=== PATIENT | male | born 1970 | race Caucasian/White ===

== ENCOUNTER 2021-04-17 07:52 | Emergency (ER) | payer MEDICAID, SELFPAY ==
[2021-04-17 07:54] VITALS: BP 165/99; PULSE 53; RESP 16; TEMP 36.1; O2SAT 98; BMI 21.7
--- NOTE | 2021-04-17 08:32 | CT_ITS ---
STUDY: CT ABDOMEN AND PELVIS WITHOUT CONTRAST REASON FOR EXAM: Male, 50 years old. Left flank pain. History of kidney stones. RADIATION DOSAGE (If Supplied By Facility): CTDIvol = ( 6.78 ) mGy, DLP = ( 294.26 ) mGycm TECHNIQUE: Transaxial images were obtained from the dome of the diaphragm to the symphysis pubis without oral contrast, and without intravenous contrast. Sagittal and coronal images were reconstructed. Individualized dose optimization techniques were used for this CT. COMPARISON: None. FINDINGS: The visualized lung bases are unremarkable. The visualized portions of the heart are within normal limits. Normal liver. Normal gallbladder and extrahepatic biliary system. Normal spleen. Normal pancreas. Normal bilateral adrenal glands. Normal right kidney. There is a 2.7 cm x 3.2 cm cyst in the upper posterior aspect of the left kidney. Mild degree of left hydronephrosis and left hydroureter with perinephric and periureteric stranding due to a 5.3 mm calculus in the distal portion of the left ureter. 3 mm nonobstructive calculus in the mid posterior calyx of the left kidney. Normal visualized stomach. Normal small intestine. Normal colon. The appendix is visualized and appears normal. There is scattered atherosclerotic calcification of the abdominal aorta, without a demonstrated aneurysm. Normal inferior vena cava. Normal retroperitoneum. Normal urinary bladder. There are prostatic calcifications. There is a small umbilical hernia containing fat. Normal osseous structures. CT/Abdomen/Pelvis without Cont IMPRESSION: 5.2 mm calculus in the distal portion of left ureter causing left hydronephrosis and hydroureter with perinephric and periureteric stranding. 3 mm nonobstructive calculus in the mid posterior calyx of the left kidney. 2.7 cm x 3.2 sinuses the upper posterior aspect of the left kidney. Small umbilical hernia containing fat. Electronically Signed: Raul Miranda MD at 9:38 EST ,
--- NOTE | 2021-04-17 08:33 | EDS_ITS ---
HPI HPI - GI History of Present Illness Chief Complaint: Flank Pain Narrative Narrative: Patient with past medical history of multiple ureteral stones presents with left-sided flank pain that began this morning. He states yesterday had right flank pain and passed a small stone. His left-sided flank pain that radiates to his groin started this morning. Sudden onset. It feels very similar to previous kidney stones. Additionally, while he denies any gross hematuria, his urine did turn dark. He denies any fevers or chills. No nausea or vomiting. No exacerbating or alleviating factors. He did drive himself here to the emergency department. [facility] Medical History Anxiety HTN (hypertension) Kidney stone Home Medications amlodipine 5 mg PO DAILY 04/17/21 [History Last Taken Unknown] bupropion HCl [Wellbutrin] 50 mg PO DAILY 04/17/21 [History Last Taken Unknown] ciprofloxacin HCl [Cipro] 500 mg PO BID #20 tab 04/17/21 [Rx Last Taken Unknown] ketorolac 10 mg PO TID PRN 5 Days #15 tab 04/17/21 [Rx Last Taken Unknown] lisinopril 5 mg PO DAILY 04/17/21 [History Last Taken Unknown] oxycodone-acetaminophen [Percocet] 1 tab PO Q6H PRN 3 Days #12 tab 04/17/21 [Rx Last Taken Unknown] prazosin 0 mg PO QHS 04/17/21 [History Last Taken Unknown] propranolol 0 mg PO PRN PRN 04/17/21 [History Last Taken Unknown] tamsulosin [Flomax] 0.4 mg PO DAILY #10 cap 04/17/21 [Rx Last Taken Unknown] trazodone 50 mg PO QHS 04/17/21 [History Last Taken Unknown] Allergy/AdvReac Type Severity Reaction Status Date / Time No Known Allergies Allergy Verified 04/17/21 07:53 Social History Smoking Status: Current every day smoker tobacco type: cigarettes ROS ROS ED ROS Narrative Constitutional: No fever, no chills. HEENT: No sore throat. No neck pain. No loss of vision. No rhinorrhea. Cardiovascular: No chest pain. No palpitations. No pedal edema. Respiratory: No cough, no shortness of breath. Abdominal: No abdominal pain. No nausea. No vomiting. Genitourinary: No dysuria. No hematuria. Dark urine. Left flank pain. Right flank pain yesterday, resolved. Musculoskeletal: No myalgias. No arthralgias. Neurologic: No headaches. No dizziness. No lightheadedness. Skin: No rash. No change in color. Psychiatric: No depression. No anxiety. EXAM Physical Exam Narrative Exam Narrative: Afebrile. Vital signs noted. HEENT: Normocephalic. Atraumatic. PERRL, EOMI. Neck soft and supple. No point tenderness or step off. Cardiovascular: Regular rate and rhythm. No murmurs, rubs, or gallops appreciated. Respiratory: No tachypnea. Lungs clear to auscultation bilaterally. Gastrointestinal: Abdomen soft, nontender, with normoactive bowel sounds. No rebound or guarding. CVA tenderness to percussion left. Neurological: Awake. Alert. Nonfocal, nonlateralizing. Skin: No rash. Normal color. No pallor. Musculoskeletal: No pedal edema. Full range of motion extremities. Const Vital Signs: 04/17/21 07:54 04/17/21 09:53 Temperature 96.9 F L Temperature Source Temporal Pulse Rate 53 L 60 Respiratory Rate 16 14 Blood Pressure 165/99 H 142/91 H Blood Pressure Mean 121 108 Pulse Ox 98 98 Oxygen Delivery Method Room Air Room Air MDM MDM MDM Narrative Medical decision making narrative: CT kidney stone work-up was obtained. Patient was administered IV fluids and ketorolac 30 mg intravenously. I will obtain basic laboratories and urinalysis. He has an elevated white count of 17.3 which I think is nonspecific, hemoglobin stable at 16.7 if not slightly elevated. Creatinine is slightly elevated at 1.4 with a BUN of 20. He was bolused normal saline. Urinalysis does show five ketones consistent more with dehydration. Negative for nitrites. WBCs are only 5-10 but there are RBCs greater than 100. I will send this for culture. CT of the abdomen and pelvis without contrast does show a 5.2 mm stone in the left distal ureter causing hydronephrosis. He does have stones in the kidney that are nonobstructing. After Toradol, he states his pain is improved. Given his elevated white count, I did discuss the patient with Dr. Davis who states that he can see the patient in the office tomorrow. He was given prescriptions for ciprofloxacin, Flomax, Toradol, and 3 days worth of Percocet. I did check his [facility] report. He was told to take the nonsteroidal anti-inflammatory over the opiate medication to help with renal colic. At this point in time, I feel he can be discharged safely home. He was told to follow-up closely with urology. He will return with any fever, nausea or vomiting/inability to take his medication, increased pain, new or worsening symptoms. Disposition is discharged home in stable condition. Lab Data Attestation: I reviewed the patient's lab results. Labs: Laboratory Results - last 24 hr 04/17/21 04/17/21 04/17/21 08:45 09:00 09:00 WBC 17.3 H RBC 5.32 Hgb 16.7 H Hct 47.9 MCV 90.0 MCH 31.4 MCHC 34.9 RDW Std Deviation 42.5 RDW Coeff of Danette 12.9 Plt Count 254 MPV 9.9 Immature Gran % (Auto) 0.600 Neut % (Auto) 70.4 H Lymph % (Auto) 18.6 L Lewis % (Auto) 7.5 Eos % (Auto) 2.6 Baso % (Auto) 0.3 Absolute Neuts (auto) 12.2 H Absolute Lymphs (auto) 3.22 Nucleated RBC % 0 Sodium 139 Potassium 4.0 Chloride 110 H Carbon Dioxide 24.0 Anion Gap 5 BUN 20 H Creatinine 1.47 H Estim Creat Clear Calc 60.45 Est GFR (MDRD) Af Amer 65 Est GFR (MDRD) Non-Af 53 L BUN/Creatinine Ratio 13.6 Glucose 115 H Calcium 8.8 Urine Color Yellow Urine Clarity Cloudy Urine pH 6.0 Ur Specific [place] 1.025 Urine Protein 30 H Urine Glucose (UA) Normal Urine Ketones 5 H Urine Occult Blood 250 H Urine Nitrite Negative Urine Bilirubin Negative Urine Urobilinogen 1 H Ur Leukocyte Esterase 25 H Urine RBC > 100 SEEN Urine WBC 5-10 SEEN Ur Squamous Epith Cells 0-5 SEEN Urine Bacteria 2+ Urine Mucus RARE Radiography Diagnostic Testing: Clinical Impression(s) from Imaging Studies Abdomen/Pelvis CT 04/17/21 08:32 IMPRESSION: 5.2 mm calculus in the distal portion of left ureter causing left hydronephrosis and hydroureter with perinephric and periureteric stranding. 3 mm nonobstructive calculus in the mid posterior calyx of the left kidney. 2.7 cm x 3.2 sinuses the upper posterior aspect of the left kidney. Small umbilical hernia containing fat. Electronically Signed: Raul Miranda MD at 9:38 EST , Discharge Plan Triage Chief Complaint: Flank Pain ED Provider: Kai Shafer Dx/Rx/DC Orders Clinical Impression: Ureterolithiasis Instructions: ED Kidney Stone w/ Colic Prescriptions: New tamsulosin [Flomax] 0.4 mg capsule 0.4 mg PO DAILY Qty: 10 RF: 0 oxycodone-acetaminophen [Percocet] 5-325 mg tablet 1 tab PO Q6H PRN (Reason: pain) 3 Days Qty: 12 RF: 0 ketorolac 10 mg tablet 10 mg PO TID PRN (Reason: pain) 5 Days Qty: 15 RF: 0 ciprofloxacin HCl [Cipro] 500 mg tablet 500 mg PO BID Qty: 20 RF: 0 No Action trazodone 50 mg Tablet 50 mg PO QHS RF: 0 prazosin 1 mg Capsule 0 mg PO QHS RF: 0 amlodipine 5 mg Tablet 5 mg PO DAILY RF: 0 bupropion HCl [Wellbutrin] 100 mg Tablet 50 mg PO DAILY RF: 0 propranolol 10 mg Tablet 0 mg PO PRN PRN (Reason: Anxiety) RF: 0 lisinopril 5 mg Tablet 5 mg PO DAILY RF: 0 Primary Care Provider: Care Physician,No Primary Referrals: Lewis Davis MD [STAFF PHYSICIAN] - 1 Day Care Physician,No Primary [Primary Care Provider] - Disposition Disposition: Home, Self Care
[2021-04-17 08:56] LABS: Color, Urine Yellow (Yellow); Glucose, Dipstick Normal (Normal); Ketone-Dipstick 5 mg/dl (Negative); Leukocyte Esterase-Dipstick 25 /ul (Negative); Nitrite-Dipstick Negative (Negative); Occult Blood-Urine 250 /ul (Negative); Protein-Dipstick 30 mg/dl (Negative); Specific Gravity, Urine 1.025 (1.002-1.030); Urine Bilirubin Dipstick Negative (Negative); Urine Clarity Cloudy (Clear); Urine Urobilinogen 1 mg/dl (Normal)
[2021-04-17] MEDS: 0.9% Normal Saline 1,000 ML 250 ML IV (09:00)
[2021-04-17] MEDS: Ketorolac 30 MG/ML Syringe IV (09:00)
[2021-04-17 09:02] LABS: Red Blood Cells-Urine > 100 SEEN /hpf (0-5)
[2021-04-17 09:03] LABS: Bacteria 2+ /hpf (None Seen); Mucous, Urine RARE /hpf (<or=2+); Squamous Epithelial Cells - UA 0-5 SEEN /hpf (0-5); White Blood Cells 5-10 SEEN /hpf (0-5)
[2021-04-17 09:09] LABS: Absolute Lymphocyte Count 3.22 X10^3/uL (0.83-4.51); Absolute Neutrophil Count 12.2 X10^3/uL (2.0-7.7); Basophil# 0.05 X10^3/uL; Basophil% 0.3 % (0-1); Eosinophil# 0.45 X10^3/uL; Eosinophils% 2.6 % (0-5); Hematocrit 47.9 % (40-54); Hemoglobin 16.7 g/dL (13.0-16.5); Lymphocyte # 3.22 X10^3/ul (0.83-4.51); Lymphocyte % 18.6 % (19-41); Mean Corp Hgb Conc 34.9 g/dL (32-36); Mean Corpuscular Hgb 31.4 pg (27.0-32.0); Mean Platelet Vol. 9.9 fl (6.2-12.0); Monocyte% 7.5 % (0-10); NRBC Flagged by Analyzer 0 % (0-5); Neutrophil # 12.22 X10^3/uL (2.7-7.7); Neutrophil % 70.4 % (47-70); Platelet Count 254 K/mm3 (150-450); RBC Distribution Width CV 12.9 % (11.6-14.6); RBC Distribution Width SD 42.5 fl (35.1-43.9); Red Blood Count 5.32 M/mm3 (4.6-6.2); White Blood Count 17.3 K/mm3 (4.4-11.0)
[2021-04-17 09:18] LABS: Anion Gap 5 (5-15); BUN 20 mg/dL (7-18); BUN/Creat Ratio 13.6 RATIO (10-20); Calcium,Total 8.8 mg/dL (8.5-10.1); Chloride 110 mmol/L (98-107); Creatinine, Serum 1.47 mg/dL (0.70-1.30); EST Glomerular Filtration Rate 53 mL/min (>60); Est Glom Filt Rate - Afr Amer 65 mL/min (>60); Estimated Creatinine Clearance 60.45 ml/min; Glucose 115 mg/dL (74-106); Sodium Level 139 mmol/L (136-145)
[2021-04-17 09:53] VITALS: BP 142/91; PULSE 60; RESP 14; O2SAT 98
[2021-04-17 11:14] VITALS: BP 160/90; PULSE 60; RESP 16
== END 2021-04-17 11:15 | disposition home or self-care (01) ==
PROVIDERS: Emergency Provider Emergency Medicine; Visit Provider Emergency Medicine
DX: N13.2 Hydronephrosis with renal and ureteral calculous obstruction (principal); I10 Essential (primary) hypertension; F41.9 Anxiety disorder, unspecified; F17.210 Nicotine dependence, cigarettes, uncomplicated; Z79.899 Other long term (current) drug therapy; Z87.442 Personal history of urinary calculi
CPT/HCPCS: 74176; 80048; 81001; 85025; 96361; 96374; 99282; J7030

== ENCOUNTER 2023-07-30 17:06 | Emergency (ER) | payer OTHER, SELFPAY ==
[2023-07-30 17:07] VITALS: BP 152/85; PULSE 88; RESP 20; TEMP 37.2; O2SAT 96; BMI 21.7
--- NOTE | 2023-07-30 18:00 | EX.ED.DYSGE1 ---
HPI History of Present Illness Chief Complaint: General Illness Narrative Narrative: 52-year-old male presenting for evaluation. He states he had a cough for about a week and a half. He is bringing up yellow sputum. He has not had a fever. He does not have chest pain and does not feel short of breath. Patient also states that his kidneys are screaming. He states he has stage I renal disease. He reports that he also has history of kidney stones but he does not feel like he has a stone now. He states he has pain bilateral lower back. He states his urine is brown. He denies dysuria or hematuria. Patient states he usually goes to [facility] however he [facility] and he states that they told him they would not admit him anymore since he has [facility] so he does not want to go there. Patient reports that he drinks about 2 bottles of water a month. He does drink 2 Gatorade's a day and drinks Mountain Dew. Denies lightheadedness or dizziness. [facility] Medical History Anxiety HTN (hypertension) Kidney stone Home Medications ?Medication ?Instructions ?Recorded ?Last Taken ?Type amlodipine 5 mg tablet 5 mg PO DAILY 04/17/21 Unknown History bupropion HCl 100 mg tablet 50 mg PO DAILY 04/17/21 Unknown History lisinopril 5 mg tablet 5 mg PO DAILY 04/17/21 Unknown History prazosin 1 mg capsule 1 mg PO QHS 04/17/21 Unknown History tamsulosin 0.4 mg capsule (Flomax) 0.4 mg PO DAILY #10 caps 04/17/21 Unknown Rx Allergy/AdvReac Type Severity Reaction Status Date / Time No Known Allergies Allergy Verified 07/30/23 17:09 Social History Smoking Status: Current every day smoker tobacco type: cigarettes ROS ROS ED Constitutional Constitutional ED: Denies chills, fever(s) or sweats Eyes Eyes: Denies blurry vision or change in vision ENT ENT ED: Denies ear pain or sore throat Cardiovascular Cardiovascular: Denies chest pain, palpitations or racing heartbeat Respiratory/Chest Respiratory/Chest: Reports cough and sputum; Denies dyspnea Gastrointestinal Gastrointestinal: Denies abdominal pain, constipation, diarrhea, nausea or vomiting Genitourinary Genitourinary ED: Reports other Details: Dark urine ; Denies dysuria, hematuria or urinary frequency Musculoskeletal Musculoskeletal: Reports back pain; Denies arthralgias, myalgias or neck pain Integumentary Denies abscess, Abrasions or rash Neurologic Neurologic: Denies headache(s), paresthesias or weakness Psychiatric Psychiatric: Denies anxiety, depression, suicidal ideation or suicidal thoughts Endocrine Endocrinology: Denies polydipsia or polyuria EXAM Physical Exam Const Vital Signs: 07/30/23 17:07 07/30/23 17:37 07/30/23 18:15 Temperature 98.9 F 99.0 F Temperature Source Temporal Oral Pulse Rate 88 Respiratory Rate 20 H Respiratory Effort Short of Breath Respiratory Pattern Tachypnea Blood Pressure 152/85 H Blood Pressure Mean 107 Pulse Ox 96 Oxygen Delivery Method Room Air Positive well nourished General Appearance ED: NAD; Negative for pallor HEENT Reports moist mucous membranes Eyes PERRL and EOMs intact bilaterally Neck no lymphadenopathy Chest Wall inspection of chest normal and palpation of chest normal Resp normal respiratory effort and clear to auscultation bilaterally Auscultation: Negative for rales, rhonchi or wheezes Cardio regular rate and regular rhythm GI normal to inspection, nondistended, normoactive bowel sounds Back/Spine Back/Spine Narrative: Patient does have some mild tenderness to palpation bilateral paraspinal musculature without midline spinal tenderness, deformity, step-off. No CVA tenderness noted. Extremity normal to inspection Neuro oriented x3 and CN's II-XII intact bilaterally Sensorium / Orientation: alert Motor Exam: strength 5/5 throughout Psych mental status grossly normal Skin no rashes or lesions noted General Skin Exam: Negative for jaundice or pallor MDM MDM MDM Narrative Medical decision making narrative: Patient presenting with cough, back pain, dark urine. Differential includes pneumonia, dehydration, anemia, electrolyte abnormalities, UTI, pyelonephritis. CBC will be obtained to assess white blood cell count, hemoglobin, platelets. BMP to assess renal function, electrolytes. Urinalysis to assess for UTI or occult blood. Patient was given IV fluids. CBC shows leukocytosis of 15.3. Hemoglobin 13.8. Platelets are normal at 233. Renal function and electrolytes actually within normal limits. 6 AST 62, ALT 88 bilirubin normal. Urinalysis negative for infection. Patient feeling improved after IV fluids. Chest x-ray my interpretation shows no acute cardiopulmonary process. Radiologist services and agrees.He believes that he has seasonal allergies but he does not want to take any medications for this. I recommended he get Claritin or Zyrtec but he declines. I suspect that the patient's back pain is musculoskeletal because he does not have CVA tenderness and his urinalysis is negative. The patient himself denies any pain consistent with his kidney stone history. No occult blood in his urine. Patient discharged home in stable condition. Impression: 1. Seasonal allergies 2. Back pain Lab Data Attestation: I reviewed the patient's lab results. Labs: Laboratory Results - last 24 hr 07/30/23 07/30/23 18:00 18:30 WBC 15.3 H RBC 4.49 L Hgb 13.8 Hct 40.4 MCV 90.0 MCH 30.7 MCHC 34.2 RDW Std Deviation 42.2 RDW Coeff of Danette 12.8 Plt Count 233 MPV 9.7 Immature Gran % (Auto) 0.700 Neut % (Auto) 65.1 Lymph % (Auto) 24.8 [place] % (Auto) 7.4 Eos % (Auto) 1.6 Baso % (Auto) 0.4 Absolute Neuts (auto) 10.0 H Absolute Lymphs (auto) 3.80 Nucleated RBC % 0 Sodium 136 Potassium 3.5 Chloride 109 H Carbon Dioxide 24.0 Anion Gap 3 L BUN 17 Creatinine 1.09 Estim Creat Clear Calc 79.65 Est GFR (MDRD) Af Amer 90 Est GFR (MDRD) Non-Af 75 BUN/Creatinine Ratio 15.6 Glucose 108 H Calcium 8.9 Total Bilirubin 0.50 AST 62 H ALT 88 H Alkaline Phosphatase 90 Total Protein 7.1 Albumin 3.0 L Globulin 4.1 Albumin/Globulin Ratio 0.7 L Urine Color Yellow Urine Clarity Clear Urine pH 7.0 Ur Specific [place] 1.010 Urine Protein Negative Urine Glucose (UA) Normal Urine Ketones Negative Urine Occult Blood Negative Urine Nitrite Negative Urine Bilirubin Negative Urine Urobilinogen Normal Ur Leukocyte Esterase 100 H Urine RBC 0 SEEN Urine WBC 0-5 SEEN Ur Squamous Epith Cells 0 SEEN Urine Bacteria 0 SEEN Urine Mucus 0 SEEN Radiography Diagnostic Testing: Clinical Impression(s) from Imaging Studies Chest X-Ray 07/30/23 18:05 IMPRESSION: No radiographic evidence of acute cardiopulmonary disease. Electronically Signed: Yoel Petersen MD at 18:26 EDT , Discharge Plan Triage Chief Complaint: General Illness ED Provider: Jesse Cote Dx/Rx/DC Orders Instructions: ED Back Pain (Acute or Chronic), ED Seasonal Allergy Prescriptions: No Action prazosin 1 mg Capsule 1 mg PO QHS amlodipine 5 mg Tablet 5 mg PO DAILY bupropion HCl [Wellbutrin] 100 mg Tablet 50 mg PO DAILY lisinopril 5 mg Tablet 5 mg PO DAILY tamsulosin [Flomax] 0.4 mg capsule 0.4 mg PO DAILY Qty: 10 0RF Primary Care Provider: Care Physician,No Primary Referrals: [facility] [Provider Group] - 3-5 Days Care Physician,No Primary [Primary Care Provider] - Print Language: Cymraes Disposition Disposition: Home, Self Care
[2023-07-30] MEDS: 0.9% Normal Saline (1000mL) 1,000 ML 1000 ML IV ×2 (18:04→19:47)
--- NOTE | 2023-07-30 18:05 | RAD_ITS ---
INDICATION: cough EXAMINATION/TECHNIQUE: X-RAY - XR Chest 1 View COMPARISON: None. FINDINGS: LINES/DEVICES: None. LUNGS: No consolidation, edema or effusion. No pneumothorax. MEDIASTINUM AND CARDIOVASCULAR STRUCTURES: Cardiac silhouette not enlarged. BONES AND SOFT TISSUES: Unremarkable. RAD/Chest 1 View (Portable) IMPRESSION: No radiographic evidence of acute cardiopulmonary disease. Electronically Signed: Yoel Petersen MD at 18:26 EDT ,
[2023-07-30 18:15] VITALS: TEMP 37.2
[2023-07-30 18:18] LABS: Basophil# 0.06 X10^3/uL; Basophil% 0.4 % (0-1); Eosinophil# 0.25 X10^3/uL; Eosinophils% 1.6 % (0-5); Hematocrit 40.4 % (40-54); Hemoglobin 13.8 g/dL (13.0-16.5); Lymphocyte % 24.8 % (19-41); Mean Corp Hgb Conc 34.2 g/dL (32-36); Mean Corpuscular Hgb 30.7 pg (27.0-32.0); Mean Platelet Vol. 9.7 fl (6.2-12.0); Monocyte# 1.13 X10^3/uL; Monocyte% 7.4 % (0-10); NRBC Flagged by Analyzer 0 % (0-5); Neutrophil # 9.97 X10^3/uL (2.7-7.7); Neutrophil % 65.1 % (47-70); Platelet Count 233 K/mm3 (150-450); RBC Distribution Width CV 12.8 % (11.6-14.6); RBC Distribution Width SD 42.2 fl (35.1-43.9); Red Blood Count 4.49 M/mm3 (4.6-6.2); White Blood Count 15.3 K/mm3 (4.4-11.0)
[2023-07-30 18:26] LABS: ALB/GLOB Ratio 0.7 RATIO (0.9-2.4); AST(SGOT) 62 U/L (15-37); Alanine Aminotransfer ALT/SGPT 88 U/L (16-61); Alkaline Phosphatase 90 U/L (45-117); Anion Gap 3 (5-15); BUN 17 mg/dL (7-18); BUN/Creat Ratio 15.6 RATIO (10-20); Calcium,Total 8.9 mg/dL (8.5-10.1); Chloride 109 mmol/L (98-107); Creatinine, Serum 1.09 mg/dL (0.70-1.30); EST Glomerular Filtration Rate 75 mL/min (>60); Est Glom Filt Rate - Afr Amer 90 mL/min (>60); Estimated Creatinine Clearance 79.65 ml/min; Globulin 4.1 g/dL (2.2-4.2); Glucose 108 mg/dL (74-106); Potassium 3.5 mmol/L (3.5-5.1); Protein, Total 7.1 g/dL (6.4-8.2); Sodium Level 136 mmol/L (136-145)
[2023-07-30 18:38] LABS: Bacteria 0 SEEN /hpf (None Seen); Mucous, Urine 0 SEEN /hpf (<or=2+); Red Blood Cells-Urine 0 SEEN /hpf (0-5); Squamous Epithelial Cells - UA 0 SEEN /hpf (0-5)
[2023-07-30 18:39] LABS: Color, Urine Yellow (Yellow); Glucose, Dipstick Normal (Normal); Ketone-Dipstick Negative (Negative); Leukocyte Esterase-Dipstick 100 /ul (Negative); Nitrite-Dipstick Negative (Negative); Occult Blood-Urine Negative /ul (Negative); Protein-Dipstick Negative (Negative); Urine Bilirubin Dipstick Negative (Negative); Urine Clarity Clear (Clear); Urine Urobilinogen Normal (Normal)
[2023-07-30 18:45] LABS: White Blood Cells 0-5 SEEN /hpf (0-5)
[2023-07-30 20:36] VITALS: BP 162/79; PULSE 79; RESP 18; TEMP 36.7; O2SAT 98
== END 2023-07-30 20:36 | disposition home or self-care (01) ==
PROVIDERS: Emergency Provider Student in an Organized Health Care Education/Training Program; Visit Provider Student in an Organized Health Care Education/Training Program
DX: J30.2 Other seasonal allergic rhinitis (principal); M54.50 Low back pain, unspecified; I12.9 Hypertensive chronic kidney disease with stage 1 through stage 4 chronic kidney disease, or unspecified chronic kidney disease; N18.1 Chronic kidney disease, stage 1; F17.210 Nicotine dependence, cigarettes, uncomplicated; Z79.899 Other long term (current) drug therapy
CPT/HCPCS: 71045; 80053; 81001; 85025; 96360; 96361; 99283; J7030; A4216